=== PATIENT | female | born 1955 | race Caucasian/White ===

== ENCOUNTER → 2016-03-07 | Outpatient (CLI) | payer OTHER ==
--- NOTE | 2016-03-07 10:28 | MA ---
Screening Digital Mammogram With Tomosynthesis Clinical Indications: Routine screening. Technique: Standard digital cephalocaudal and tomosynthesis mediolateral oblique projections are obt ained. The digital images are processed by the [employer] computer aided detection system. Comparison: August 2012, June 2011 and April 2010 Breast density: C; The breast tissue is heterogeneously dense, which could obscure detection of small masses. Findings: CAD was reviewed. No suspicious findings are identified. Impression: Negative mammogram. BI-RADS 1. Recommendation: Routine screening is recommended in one year, as long as physical examination is david ign in this patient with moderately dense breast parenchyma. [facility] will send a result letter to the patient. Negative mammography should not preclude additional workup of a clinically suspicious finding. The patient's information is entered into a reminder system with a target due date for her next mammo gram.
--- NOTE | 2016-03-07 17:50 | DX ---
DEXA Bone Mineral Densitometry Screening Clinical Indications: On the questionnaire, the patient reports fracture of the ankles and femur as an adult. Previous history of low bone mineral density. The patient takes supplemental calcium and vi tamin D. She exercises regularly. Comparison: March 21, 2011 Technique: Bone Mineral Densitometry (BMD) by Dual Energy X-Ray Absorptiometry (DEXA) was performed utilizing the [employer] scanner. The lumbar spine was evaluated in the AP projection. The left hip and left forearm were evaluated in the AP projection. Vertebral fracture assessment was also perf ormed. AP Lumbar Spine: The L1, L2, and L4 vertebral bodies are evaluated. L3 was excluded similar to the prior study. BMD: 1.128 gm/cm2 T-score: -0.5 SD Z-score: 0.9 SD Since the previous study, there has been mild to moderate decrease in bone mineral density by 7.9%. AP Left Hip: BMD: 0.773 gm/cm2 T-score: -1.9 SD Z-score: -0.8 SD Since the previous study, there has been no significant change. AP Left Forearm: BMD: 0.780 gm/cm2 T-score: -1.1 SD Z-score: -0.2 SD Since the previous study, there has been mild to moderate decrease in bone mineral density by 7.6%. Vertebral Fracture Assessment: No significant fracture deformity. The ten year risk for any major osteoporotic fracture is 14.8% and for a hip fracture is 1.9%. Conclusion: Considering the lowest measured site, the patient has low bone mineral density. The bone mineral density of the lumbar spine and left forearm has decreased since the prior study. Any bone loss in this patient is probably related to aging or estrogen deficiency. Recommendations: 1. Pursue a regular regimen of weight bearing and muscle strengthening exercises. 2. Insure that total daily calcium intake is at least 1500 mg (DIET more important than supplements). 3. Check serum hydroxy vitamin D3 (normal >30ng/ml). 4. Insure daily intake of vitamin D is at least 800-1000 international units. 5. Consider follow-up DEXA scan in 2-4 years to assess the rate of bone loss in this patient.
== END ==
LOC: FIMAGING 08:44
PROVIDERS: ATTEND Family Medicine
DX: Z12.31 Encounter for screening mammogram for malignant neoplasm of breast (principal); Z13.820 Encounter for screening for osteoporosis; M85.80 Other specified disorders of bone density and structure, unspecified site
CPT/HCPCS: G0202

== ENCOUNTER → 2017-05-12 | Outpatient (CLI) | payer OTHER | LOC: FIMAGING 12:10 | PROVIDERS: ATTEND Family Medicine | DX: Z12.31 Encounter for screening mammogram for malignant neoplasm of breast (principal) ==

== ENCOUNTER → 2017-10-30 | Outpatient (CLI) | payer OTHER | LOC: FIMAGING 09:03 | PROVIDERS: ATTEND Family Medicine | DX: N60.01 Solitary cyst of right breast (principal) ==